=== PATIENT | female | born 1975 | race Caucasian/White ===

== ENCOUNTER 2017-11-22 00:27 | Emergency (ER) | payer OTHER, MEDICAID ==
[~2017-11-22] VITALS: Ht 162.6 cm; Wt 90.7 kg
[~2017-11-22 00:27] MED LIST: ACETAMINOPHEN-1 EAC1 PO; ALBUTEROL INHAL17 GM; ALBUTEROL2.5 MG/31; ALBUTEROL2.5 MG/31 IH; AMOXICILLIN 25250 M1 PO; ATIVAN0.5 MG PO; AVELOX400 MG PO; BACTRIM DS TAB1 EACH PO; CARISOPRODOL 3350 MG PO; CIPRO500 MG PO; CIPROFLOXACIN500 M1 PO; DIFLUCAN150 MG PO; FLAGYL500 MG PO; HYDROCODONE-AP1 EAC6 PO; IBUPROFEN 800800 M1 PO; MEDROL DOSPAK21 TA1 PO; MOBIC7.5 MG PO; MUCINEX TA600 MG/TA2 PO; NAPROSYN500 MG PO; NOHOMEMEDICATIONS; NORCO 5-325 TA1 EAC1 PO; NORCO 5-325 TA1 EACH PO; PHENTERMINE H37.5 MG PO; PREDNISONE 20 M20 MG PO; PROAIR HFA8.5 GM IH; PROMETH-CODEIN 65 ML PO; ROBAXIN 750 MG750 M1 PO; ULTRAM 50MG TAB50 MG PO; VENTOLIN HFA 1818 GM INH; VENTOLIN17 GM INH; VICOPROFEN 2001 EACH PO; ZPAK PO
[2017-11-22] MEDS ORDERED: KEFLEX500 M1 PO (01:00)
[2017-11-22 01:14] VITALS: BP 118/76
== END 2017-11-22 01:15 | disposition home or self-care (01) ==
LOC: M.ERS 00:27
DX: L03.116 Cellulitis of left lower limb (principal); J45.909 Unspecified asthma, uncomplicated; F17.210 Nicotine dependence, cigarettes, uncomplicated

== ENCOUNTER 2018-02-16 19:53 | Emergency (ER) | payer OTHER, MEDICAID ==
[~2018-02-16] VITALS: Ht 165.1 cm; Wt 90.7 kg
[~2018-02-16 19:53] MED LIST changes: +KEFLEX500 M1 PO
[2018-02-16] MEDS ORDERED: ROBAXIN 750 MG750 M1 PO (20:32)
[2018-02-16] MEDS ORDERED: NORCO 5-325 TA1 EACH PO (20:32)
[2018-02-16] MEDS ORDERED: IBUPROFEN 800800 M1 PO (20:56)
[2018-02-16 21:06] VITALS: BP 128/86
--- NOTE | 2018-02-17 11:03 | EKG ---
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
== END 2018-02-16 21:09 | disposition home or self-care (01) ==
LOC: M.ERS 19:53
DX: R07.81 Pleurodynia (principal); J45.909 Unspecified asthma, uncomplicated; F17.210 Nicotine dependence, cigarettes, uncomplicated

== ENCOUNTER 2018-03-26 12:54 | Emergency (ER) | payer OTHER, MEDICAID ==
[~2018-03-26] VITALS: Ht 160 cm; Wt 99.8 kg
[2018-03-26 14:00] LABS: URINE BILIRUBIN NEGATIVE (Negative); URINE BLOOD TRACE (Negative); URINE CLARITY SL CLOUDY; URINE COLOR YELLOW; URINE GLUCOSE-RANDOM NEGATIVE (Negative); URINE KETONES NEGATIVE (Negative); URINE LEUKOCYTES-REFLEX 1+ (Negative); URINE NITRITE-REFLEX NEGATIVE (Negative); URINE PROTEIN NEGATIVE (Negative); URINE SPECIFIC GRAVITY >= 1.030 (1.005-1.030); URINE UROBILINOGEN 0.2 E.U./dl (0.2-1.0)
[2018-03-26 14:04] LABS: ABSOLUTE BASOPHILS 0.1 thou/uL (0.0-0.2); ABSOLUTE EOSINOPHILS 0.1 thou/uL (0.0-0.7); ABSOLUTE LYMPHOCYTES 1.9 thou/uL (0.8-5.3); ABSOLUTE MONOCYTES 0.7 thou/uL (0.0-1.2); ABSOLUTE NEUTROPHILS 6.8 thou/uL (1.6-8.1); HEMATOCRIT 40.1 % (37.0-47.0); HEMOGLOBIN 13.5 gm/dL (12.0-15.0); LYMPHOCYTES 19.8 %; MCH 30.1 pg (26.0-34.0); MCHC 33.8 g/dL (28.0-37.0); MCV 89.2 fL (80.0-100.0); MONOCYTES 7.6 %; MPV 8.3 fl. (7.2-11.1); NUCLEATED RBCS 0 /100WBC; PLATELET COUNT* 283 thou/uL (150-400); POLYS 70.6 %; RBC 4.49 mil/uL (4.20-5.00); RDW-CV 13.4 % (10.5-14.5); WBC 9.6 thou/uL (4.0-11.0)
[2018-03-26 14:09] LABS: CASTS None Seen /LPF (None Seen); CRYSTALS None Seen /LPF (None Seen); SQUAMOUS 4-10 Moderate /LPF (0-3); URINE RBC 0-2 Rare /HPF (0-2); URINE WBC-REFLEX 6-15 Few /HPF (0-5)
[2018-03-26 14:12] LABS: CALCIUM 8.5 mg/dL (8.5-10.1); POTASSIUM 3.9 mmol/L (3.5-5.1)
[2018-03-26 14:16] LABS: ALBUMIN 3.2 g/dL (3.4-5.0); TOTAL BILIRUBIN 0.5 mg/dL (<0.1-1.0); TOTAL PROTEIN 7.4 g/dL (6.4-8.2)
[2018-03-26] MEDS ORDERED: NORCO 7.5-3251 EACH PO (15:43)
[2018-03-26] MEDS ORDERED: IBUPROFEN 800800 M1 PO (15:43)
[2018-03-26] MEDS ORDERED: UNISOM25 MG PO (15:49)
[2018-03-26] MEDS ORDERED: BACTRIM DS TAB1 EACH PO (15:50)
[2018-03-26 16:39] VITALS: BP 135/75
== END 2018-03-26 16:40 | disposition home or self-care (01) ==
LOC: M.ERS 12:54
PROVIDERS: Physician Assistant
DX: S22.41XA Multiple fractures of ribs, right side, initial encounter for closed fracture (principal); F41.9 Anxiety disorder, unspecified; A59.9 Trichomoniasis, unspecified; N39.0 Urinary tract infection, site not specified; J45.909 Unspecified asthma, uncomplicated; F17.210 Nicotine dependence, cigarettes, uncomplicated; V49.69XA Unspecified car occupant injured in collision with other motor vehicles in traffic accident, initial encounter; Y93.89 Activity, other specified; Y92.89 Other specified places as the place of occurrence of the external cause; Y99.8 Other external cause status

== ENCOUNTER 2018-04-12 12:11 | Emergency (ER) | payer OTHER ==
[~2018-04-12] VITALS: Ht 157.5 cm; Wt 99.8 kg
[~2018-04-12 12:11] MED LIST changes: +NORCO 7.5-3251 EACH PO; +UNISOM25 MG PO
[2018-04-12] MEDS ORDERED: CYCLOBENZAPRINE5 MG PO (12:26)
[2018-04-12] MEDS ORDERED: VITAMIN B-12500 MCG PO (12:26)
[2018-04-12] MEDS ORDERED: ST. JOHN'S WOR300 MG PO (12:26)
[2018-04-12 13:13] LABS: ABSOLUTE BASOPHILS 0.1 thou/uL (0.0-0.2); ABSOLUTE EOSINOPHILS 0.1 thou/uL (0.0-0.7); ABSOLUTE LYMPHOCYTES 1.9 thou/uL (0.8-5.3); ABSOLUTE MONOCYTES 0.5 thou/uL (0.0-1.2); ABSOLUTE NEUTROPHILS 6.7 thou/uL (1.6-8.1); BASOPHILS 0.6 %; EOSINOPHILS 0.9 %; HEMATOCRIT 39.6 % (37.0-47.0); HEMOGLOBIN 13.2 gm/dL (12.0-15.0); LYMPHOCYTES 20.7 %; MCH 29.8 pg (26.0-34.0); MCHC 33.3 g/dL (28.0-37.0); MCV 89.6 fL (80.0-100.0); MONOCYTES 5.2 %; MPV 8.4 fl. (7.2-11.1); NUCLEATED RBCS 0 /100WBC; PLATELET COUNT* 301 thou/uL (150-400); POLYS 72.6 %; RBC 4.42 mil/uL (4.20-5.00); RDW-CV 13.7 % (10.5-14.5); WBC 9.2 thou/uL (4.0-11.0)
[2018-04-12 13:19] LABS: CREATININE 0.8 mg/dL (0.6-1.3); POTASSIUM 3.7 mmol/L (3.5-5.1)
[2018-04-12 13:24] LABS: ALBUMIN 3.4 g/dL (3.4-5.0); TOTAL BILIRUBIN 0.3 mg/dL (<0.1-1.0); TOTAL PROTEIN 7.7 g/dL (6.4-8.2)
[2018-04-12] MEDS ORDERED: ATIVAN1 MG PO (13:48)
[2018-04-12 14:05] VITALS: BP 119/81
== END 2018-04-12 14:06 | disposition home or self-care (01) ==
LOC: M.ERS 12:11
PROVIDERS: Emergency Medicine Emergency Medical Services
DX: F41.9 Anxiety disorder, unspecified (principal); J45.909 Unspecified asthma, uncomplicated; F17.210 Nicotine dependence, cigarettes, uncomplicated; Z87.440 Personal history of urinary (tract) infections

== ENCOUNTER 2019-04-28 13:13 | Emergency (ER) | payer OTHER, MEDICAID ==
[~2019-04-28] VITALS: Ht 160 cm; Wt 113.4 kg
[~2019-04-28 13:13] MED LIST changes: +ATIVAN1 MG PO; +CYCLOBENZAPRINE5 MG PO; +ST. JOHN'S WOR300 MG PO; +VITAMIN B-12500 MCG PO
[2019-04-28 16:10] LABS: URINE BILIRUBIN NEGATIVE (Negative); URINE BLOOD NEGATIVE (Negative); URINE CLARITY CLEAR; URINE COLOR YELLOW; URINE GLUCOSE-RANDOM NEGATIVE (Negative); URINE KETONES NEGATIVE (Negative); URINE LEUKOCYTES-REFLEX NEGATIVE (Negative); URINE NITRITE-REFLEX NEGATIVE (Negative); URINE PROTEIN NEGATIVE (Negative); URINE SPECIFIC GRAVITY 1.015 (1.005-1.030); URINE UROBILINOGEN 0.2 E.U./dl (0.2-1.0)
[2019-04-28 16:39] LABS: INFLUENZA A ANTIGEN Negative (Negative); INFLUENZA B ANTIGEN Negative (Negative)
[2019-04-28] MEDS ORDERED: ZOFRAN ODT4 MG PO (18:01)
[2019-04-28] MEDS ORDERED: AZITHROMYCIN 2250 MG PO (18:05)
[2019-04-28] MEDS ORDERED: PROMETHAZINE12.5 M1 PO (18:05)
[2019-04-28 18:14] VITALS: BP 112/79
--- NOTE | 2019-04-29 13:40 | EKG ---
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 : 1975 Requested By: Manish Vyas Order Number: [id number] MD: Glenn Archuleta Measurements Intervals [place] Rate: 76 P: 49 [place]: 171 QRS: 15 QRSD: 102 T: 25 QT: 407 QTc: 458 Interpretive Statements Sinus rhythm Baseline wander in lead(s) I,III,aVL Compared to ECG 02/16/2018 20:01:24 No significant changes Electronically Signed On 04-29-2019 13:40:03 [employer] by Glenn Archuleta [email or web address] <ELECTRONICALLY SIGNED> By: Glenn Archuleta MD, [facility] 04/29/19 1340 1608 1608 Glenn Archuleta MD, FACC /EPI
== END 2019-04-28 18:15 | disposition home or self-care (01) ==
LOC: M.ERS 13:13
PROVIDERS: Nurse Practitioner Psychiatric/Mental Health
DX: J18.9 Pneumonia, unspecified organism (principal); Z20.2 Contact with and (suspected) exposure to infections with a predominantly sexual mode of transmission; J45.909 Unspecified asthma, uncomplicated; F17.210 Nicotine dependence, cigarettes, uncomplicated; Z87.440 Personal history of urinary (tract) infections

== ENCOUNTER 2020-02-03 15:23 | Emergency (ER) | payer OTHER, MEDICAID ==
[~2020-02-03] VITALS: Ht 157.5 cm; Wt 113.4 kg
[~2020-02-03 15:23] MED LIST changes: +AZITHROMYCIN 2250 MG PO; +PROMETHAZINE12.5 M1 PO; +ZOFRAN ODT4 MG PO
[2020-02-03] MEDS ORDERED: EFFEXOR XR75 MG PO (15:36)
[2020-02-03] MEDS ORDERED: METFORMIN HCL500 M3 PO (15:36)
[2020-02-03] MEDS ORDERED: FLEXERIL PO ×3 (18:14→18:17)
[2020-02-03] MEDS ORDERED: IBUPROFEN 800800 M1 PO ×2 (18:22)
[2020-02-03 18:35] VITALS: BP 109/72
== END 2020-02-03 18:35 | disposition home or self-care (01) ==
LOC: M.ERS 15:23
DX: S16.1XXA Strain of muscle, fascia and tendon at neck level, initial encounter (principal); M54.6 Pain in thoracic spine; M54.5 Low back pain; R07.81 Pleurodynia; J45.909 Unspecified asthma, uncomplicated; F17.210 Nicotine dependence, cigarettes, uncomplicated; Z87.440 Personal history of urinary (tract) infections; V89.2XXA Person injured in unspecified motor-vehicle accident, traffic, initial encounter; Y93.89 Activity, other specified; Y92.89 Other specified places as the place of occurrence of the external cause; Y99.8 Other external cause status

== ENCOUNTER 2021-06-16 15:43 | Emergency (ER) | payer OTHER, MEDICAID ==
[~2021-06-16] VITALS: Ht 157.5 cm; Wt 124.7 kg
[~2021-06-16 15:43] MED LIST changes: +EFFEXOR XR75 MG PO; +FLEXERIL PO; +METFORMIN HCL500 M3 PO
[2021-06-16] MEDS ORDERED: PEPCID20 MG PO (16:04)
[2021-06-16 17:06] LABS: ABSOLUTE BASOPHILS 0.1 thou/uL (0.0-0.2); ABSOLUTE EOSINOPHILS 0.1 thou/uL (0.0-0.7); ABSOLUTE LYMPHOCYTES 2.5 thou/uL (0.8-5.3); ABSOLUTE MONOCYTES 0.6 thou/uL (0.0-1.2); ABSOLUTE NEUTROPHILS 5.1 thou/uL (1.6-8.1); BASOPHILS 1.2 %; EOSINOPHILS 1.7 %; HEMATOCRIT 37.1 % (37.0-47.0); HEMOGLOBIN 12.5 gm/dL (12.0-15.0); LYMPHOCYTES 29.4 %; MCHC 33.5 g/dL (28.0-37.0); MCV 86.3 fL (80.0-100.0); MONOCYTES 6.8 %; MPV 8.1 fl. (7.2-11.1); NUCLEATED RBCS 0 /100WBC; PLATELET COUNT* 301 thou/uL (150-400); POLYS 60.9 %; RDW-CV 14.3 % (10.5-14.5); WBC 8.3 thou/uL (4.0-11.0)
[2021-06-16 17:14] LABS: CALCIUM 8.1 mg/dL (8.5-10.1); CREATININE 0.8 mg/dL (0.6-1.3); POTASSIUM 3.8 mmol/L (3.5-5.1)
[2021-06-16 17:18] LABS: ALBUMIN 3.1 g/dL (3.4-5.0); MAGNESIUM 2.2 mg/dL (1.8-2.4); TOTAL BILIRUBIN 0.3 mg/dL (<0.1-1.0); TOTAL PROTEIN 7.1 g/dL (6.4-8.2)
[2021-06-16] MEDS ORDERED: IBUPROFEN 800800 MG PO (17:34)
[2021-06-16] MEDS ORDERED: MEDROLDOSEPACK PO (17:34)
[2021-06-16] MEDS ORDERED: FLEXERIL PO (17:34)
[2021-06-16 17:54] VITALS: BP 130/78
--- NOTE | 2021-06-17 10:01 | EKG ---
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
== END 2021-06-16 17:56 | disposition home or self-care (01) ==
LOC: M.ERS 15:43
PROVIDERS: Student in an Organized Health Care Education/Training Program
DX: R07.89 Other chest pain (principal); R51.9 Headache, unspecified; R42 Dizziness and giddiness; R20.2 Paresthesia of skin; R20.0 Anesthesia of skin; J45.909 Unspecified asthma, uncomplicated; F17.210 Nicotine dependence, cigarettes, uncomplicated; Z87.42 Personal history of other diseases of the female genital tract; Z98.890 Other specified postprocedural states; Z79.899 Other long term (current) drug therapy